=== PATIENT | male | born 2000 | race Caucasian/White ===

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

== ENCOUNTER → 2021-06-22 | Outpatient (CLI) | payer OTHER | END | disposition home or self-care (01) | LOC: RAD 10:39 | PROVIDERS: ATTEND Nurse Practitioner Family | DX: R10.84 Generalized abdominal pain (principal) ==

== ENCOUNTER 2023-08-13 21:15 | Emergency (ER) | payer OTHER ==
[~2023-08-13] VITALS: Ht 182.8 cm; Wt 95.3 kg
[2023-08-13] MEDS ORDERED: Doxycycline Hyclate 100 MG CAP PO ONE (21:40)
[2023-08-13] MEDS ORDERED: VIBRAMYCIN100 MG PO (21:53)
== END 2023-08-13 22:12 | disposition home or self-care (01) ==
LOC: ED 21:15
DX: S30.861A Insect bite (nonvenomous) of abdominal wall, initial encounter (principal); K21.9 Gastro-esophageal reflux disease without esophagitis; Z98.890 Other specified postprocedural states; W57.XXXA Bitten or stung by nonvenomous insect and other nonvenomous arthropods, initial encounter; Y93.89 Activity, other specified; Y92.009 Unspecified place in unspecified non-institutional (private) residence as the place of occurrence of the external cause; Y99.8 Other external cause status

== ENCOUNTER 2024-05-12 19:32 | Emergency (ER) | payer OTHER ==
[~2024-05-12] VITALS: Ht 185.4 cm; Wt 95.3 kg
[~2024-05-12 19:32] MED LIST changes: +VIBRAMYCIN100 MG PO
[2024-05-12] MEDS ORDERED: SILVER SULFADIAZINE 25 GM TUBE T ONE (20:10)
[2024-05-12] MEDS ORDERED: Tdap Vaccine 0.5 ML SYR (Adult Vaccine) IM ONE (20:10)
[2024-05-12] MEDS ORDERED: Acetaminophen/Oxycodone 5 MG/325 MG TABLET PO ONE (20:10)
[2024-05-12] MEDS ORDERED: Motrin,Rufen800 MG PO (21:18)
[2024-05-12] MEDS ORDERED: HYDROCODONE-AC1 EAC1 PO (21:18)
[2024-05-12] MEDS ORDERED: SILVADENE,SSD C50 GM PO (21:18)
[2024-05-12] MEDS ORDERED: Acetaminophen/Hydrocodone Bi 3 TAB PACK PO ONE (21:30)
== END 2024-05-12 21:30 | disposition home or self-care (01) ==
LOC: ED 19:32
DX: T23.202A Burn of second degree of left hand, unspecified site, initial encounter (principal); T23.201A Burn of second degree of right hand, unspecified site, initial encounter; K21.9 Gastro-esophageal reflux disease without esophagitis; Z98.890 Other specified postprocedural states; T31.0 Burns involving less than 10% of body surface; X08.8XXA Exposure to other specified smoke, fire and flames, initial encounter; Y93.89 Activity, other specified; Y92.89 Other specified places as the place of occurrence of the external cause; Y99.8 Other external cause status

== ENCOUNTER → 2024-05-15 | Outpatient (CLI) | payer OTHER ==
[~2024-05-15] MED LIST changes: +HYDROCODONE-AC1 EAC1 PO; +Motrin,Rufen800 MG PO; +SILVADENE,SSD C50 GM PO
== END | disposition home or self-care (01) ==
LOC: WOUNDCARE 10:25
PROVIDERS: ATTEND Nurse Practitioner Family
DX: T23.302A Burn of third degree of left hand, unspecified site, initial encounter (principal); T23.301A Burn of third degree of right hand, unspecified site, initial encounter; T31.0 Burns involving less than 10% of body surface; L53.9 Erythematous condition, unspecified; Z98.890 Other specified postprocedural states; X08.8XXA Exposure to other specified smoke, fire and flames, initial encounter; Y93.89 Activity, other specified; Y92.89 Other specified places as the place of occurrence of the external cause; Y99.8 Other external cause status

== ENCOUNTER → 2024-05-22 | Outpatient (CLI) | payer OTHER | END | disposition home or self-care (01) | LOC: WOUNDCARE 03:59 | PROVIDERS: ATTEND Nurse Practitioner Family | DX: T23.302D Burn of third degree of left hand, unspecified site, subsequent encounter (principal); T23.301D Burn of third degree of right hand, unspecified site, subsequent encounter; T31.0 Burns involving less than 10% of body surface; L53.9 Erythematous condition, unspecified; Z98.890 Other specified postprocedural states; X08.8XXD Exposure to other specified smoke, fire and flames, subsequent encounter; Z79.899 Other long term (current) drug therapy ==

== ENCOUNTER → 2024-05-29 | Outpatient (CLI) | payer OTHER | END | disposition home or self-care (01) | LOC: WOUNDCARE 00:53 | PROVIDERS: ATTEND Nurse Practitioner Family | DX: T23.301D Burn of third degree of right hand, unspecified site, subsequent encounter (principal); T23.302D Burn of third degree of left hand, unspecified site, subsequent encounter; T31.0 Burns involving less than 10% of body surface; L53.9 Erythematous condition, unspecified; Z98.890 Other specified postprocedural states; Z79.899 Other long term (current) drug therapy; X08.8XXD Exposure to other specified smoke, fire and flames, subsequent encounter ==